=== PATIENT | female | born 1985 | race Caucasian/White ===

== ENCOUNTER 2018-09-10 16:43 | Emergency (ER) | payer MEDICAID ==
[~2018-09-10] VITALS: Wt 73.7 kg
[~2018-09-10 16:43] MED LIST: FERR27TA PO; FLUT9.9S NASAL; IBUP-1561 PO; LORA1TAB54 PO; PREN-46 PO
[2018-09-10] MEDS ORDERED: KETOROLAC 30 MG INJ IV STA (18:45)
[2018-09-10] MEDS ORDERED: METOCLOPRAMIDE 10 MG INJ IV ONE (19:00)
[2018-09-10] MEDS ORDERED: SOD CHLORIDE 0.9% 1,000 ML IV ONE (19:00)
[2018-09-10] MEDS ORDERED: DIPHENHYDRAMINE 50 MG INJ IV ONE (19:00)
[2018-09-10] MEDS ORDERED: morphine 2 MG INJ IV STA (19:54)
[2018-09-10] MEDS ORDERED: HYDROCODONE/APAP (5/325) TAB PO ONE (20:00)
[2018-09-10] MEDS ORDERED: MECLIZINE 12.5 MG TAB PO ONE (20:00)
[2018-09-10] MEDS ORDERED: BUTA1CAP38 PO (20:41)
[2018-09-10] MEDS ORDERED: BEN25 PO (20:41)
[2018-09-10] MEDS ORDERED: METO10TA92 PO (20:41)
[2018-09-10 20:45] VITALS: BP 104/60; PULSE 62; RESP 19
[2018-09-10] MEDS ORDERED: MECL12.574 PO (20:46)
--- NOTE | 2018-09-11 01:42 | ERD ---
ER Documentation Chief Complaint Chief Complaint bib self, cc: sanchez x 2 weeks, numbnss since yesterday left side HPI 33 year-old [female] coming in today with Chief Complaint: Headache History of Present Illness: female coming in today with complaint of headache for 2 weeks. Associated symptoms include dizziness, left-sided numbness for the past 2 days. Patient reports never has had migraine like the present headache that she currently has. Patient reports taking sumatriptan 25 mg daily for 7 days, no relief of headache. Review of systems: All systems were reviewed and are negative except for what is indicated in the history of present illness. Past Medical History: Migraine Social History: [Patient denies elicit drug use]; positive tobacco, alcohol, Medications: [Reviewed as documented Nursing Notes] Allergies: [NKDA] Social Concerns: Denies ROS All systems reviewed and are negative except as per history of present illness. Medications Home Meds Active Scripts Meclizine Hcl* (Antivert*) 12.5 Mg Tab, 12.5 MG PO Q6H PRN for DIZZINESS, #20 TAB Prov:ARNOLD ALEXANDER V DATA MINING ANALYST 09/10/18 Diphenhydramine Hcl* (Benadryl*) 25 Mg Cap, 25 MG PO Q6 for TAKE WITH REGLAN, #30 CAP Prov:ARNOLD ALEXANDER V DATA MINING ANALYST 09/10/18 Metoclopramide* (Reglan*) 10 Mg Tablet, 10 MG PO Q6 PRN for NAUSEA AND/OR VOMITING, #10 TAB Prov:ARNOLD ALEXANDER V DATA MINING ANALYST 09/10/18 Wwqyfxlgzw-Daxkwistbfslu-Dsoohlte* (Fioricet*) 50-300-40 Mg Capsule, 1 CAP PO Q4H PRN for HEADACHE, #10 CAP Prov:ARNOLD ALEXANDER V DATA MINING ANALYST 09/10/18 Ibuprofen* (Motrin*) 400 Mg Tab, 400 MG PO Q6H PRN for PAIN AND OR ELEVATED T EMP, #30 TAB Prov:MILTON PEOPLES PA-C 08/19/15 Loratadine/Pseudoephedrine* (Claritin-D* 12 Hr) 5-120 Mg Tab.er.12h, 1 TAB PO Q12, #20 TAB.SA Prov:MILTON PEOPLES PA-C 08/19/15 Fluticasone Propionate (Flonase Allergy Relief) 9.9 Ml Zoe.susp, 1 SPRAY NASAL BID, #1 BOTTLE TO EACH NOSTRIL Prov:MILTON PEOPLES PA-C 08/19/15 Reported Medications Ferrous Sulfate (Iron) 1 Tab Tablet, 1 TAB PO DAILY 07/13/13 Vit #108/Iron/Fa ( ONE TABLET) 1 Each Tablet, 1 EACH PO DAILY 06/01/13 Allergies Allergies: Coded Allergies: No Known Allergy (Unverified , 06/01/13) PMhx/Soc Hx Miscellaneous Medical Probl: Yes (MIGRAINE) Hx Alcohol Use: No Hx Substance Use: No Hx Tobacco Use: No FmHx Family History: diabetes; No coronary disease Physical Exam Vitals Vital Signs Date Temp Pulse Resp B/P (MAP) Pulse Ox O2 O2 Flow FiO2 Time Delivery Rate 09/10/18 97.0 62 19 104/60 97 Room Air 20:45 (75) 09/10/18 73 121/66 19:53 (84) 70 122/72 (89) 67 136/76 (96) 09/10/18 98.3 78 19 156/78 100 16:51 (104) Physical Exam Const: No acute distress Head: Atraumatic Eyes: Normal Conjunctiva ENT: Normal External Ears, Nose and Mouth. Neck: Full range of motion. No meningismus. Resp: Clear to auscultation bilaterally Cardio: Regular rate and rhythm, no murmurs Abd: Soft, non tender, non distended. Normal bowel sounds Skin: No petechiae or rashes Back: No midline or flank tenderness Ext: No cyanosis, or edema Neur: Awake and alert, patient speaking in clear sentences, decreased sensation to left side of face and left upper extremity; all other cranial nerves intact Psych: Normal Mood and Affect Results 24 hrs Laboratory Tests Test 09/10/18 17:48 POC Beta HCG, Qualitative NEGATIVE Current Medications Medications Dose Sig/Anthony Start Time Status Last (Trade) Ordered Route PRN Stop Time Admin Dose Reason Admin Sodium 1,000 ml @ Q1H ONCE 09/10/18 DC 09/10/18 Chloride 1,000 mls/hr IV 19:00 19:02 09/10/18 19:59 10 mg ONCE ONCE 09/10/18 DC 09/10/18 Metoclopramid IV 19:00 19:02 e HCl 09/10/18 19:01 (Reglan) 25 mg ONCE ONCE 09/10/18 DC 09/10/18 Diphenhydrami IV 19:00 19:02 ne HCl 09/10/18 19:01 (Benadryl) Ketorolac 30 mg ONCE STAT 09/10/18 DC 09/10/18 Tromethamine IV 18:45 19:02 (Toradol) 09/10/18 18:47 Meclizine 25 mg ONCE ONCE 09/10/18 DC 09/10/18 HCl PO 20:00 19:54 (Antivert) 09/10/18 20:01 1 tab ONCE ONCE 09/10/18 DC Acetaminophen PO 20:00 / 09/10/18 20:01 Hydrocodone Bitart (Lewis (5/325)) Morphine 2 mg ONCE STAT 09/10/18 DC Sulfate IV 19:54 (morphine) 09/10/18 19:56 Procedures/MDM Patient with complaint of headache ED course includes a thorough examination and history. Will order CT due to neuro deficit of decreased sensation. Patient reassessment: Inform patient CT negative, will order pain medications and migraine cocktail including Reglan, Benadryl, Toradol, IV NS. Patient reassessment at 1944: Patient reported pain decreased, 5 of 10, dizziness still present; will order meclizine and do orthostatic vital signs. Patient reassessment at 2039: Orthostatic vital signs normal. Patient reporting dizzy no longer present. Pain decreased. Inform patient of disposition, education given, family at bedside. Otherwise healthy patient presenting with constellation of symptoms likely representing migraine as characterized by history, physical exam findings [radiologic/lab findings]. No respiratory distress, otherwise relatively well appearing and nontoxic. Patient educated on diagnoses, prescriptions for Fioricet, Reglan, Benadryl, follow-up care, return precautions. Strict return precautions given for worsening condition; questions answered discharge. Disposition for discharge with followup in 2-3 days with PCP/clinic. Departure Diagnosis: Primary Impression: Migraine Migraine type: unspecified Status migrainosus presence: without status migrainosus Intractability: not intractable Qualified Codes: G43.909 - Migraine, unspecified, not intractable, without status migrainosus Condition: Stable Patient Instructions: Migraines and Cluster Headaches, Migraine Headache: Stages and Treatment Referrals: [facility] Usted se sanchez hecho un examen mdico de control que le indica que no est en luca condicin que requiera tratamiento urgente en el Departamento de Emergencia. Un estudio ms profundo y el tratamiento de flowers condicin pueden esperar sin ningn riesgo hasta que usted sea atendida/o en el consultorio de flowers mdico o luca clnica. Es responsabilidad suya arreglar luca alvaro para el seguimiento del yvonne. MANEJO DE CONDICIONES NO URGENTES EN EL FUTURO 1) Si usted tiene un mdico de atencin primaria: Usted debera llamar a flowers mdico de atencin primaria antes de venir al departamento de emergencia. Despus de las horas de consultorio, flowers doctor o flowers asociado/a est disponible por telfono. El mdico o enfermero de anna en el servicio telefnico puede asesorarle por chanel medio para atender el problema, o yvonne contrario se puede programar luca alvaro. 2) Si usted no tiene un mdico de atencin primaria: Llame al mdico o clnica de referencia que aparece abajo azul las horas de consultorio para hacer luca alvaro para que le vean. CLINICAS: [facility] [phone] [facility] [phone] [facility] [phone] [address] [facility] [address] [facility] [phone] [place] [id number] [phone] [facility]. [phone] [address] [facility]. [facility] () Usted se sanchez hecho un examen mdico de control que le indica que no est en luca condicin que requiera tratamiento urgente en el Departamento de Emergencia. Un estudio ms profundo y el tratamiento de flowers condicin pueden esperar sin ningn riesgo hasta que usted sea atendida/o en el consultorio de flowers mdico o luca clnica. Es responsabilidad suya arreglar luca alvaro para el seguimiento del yvonne. MANEJO DE CONDICIONES NO URGENTES EN EL FUTURO 1) Si usted tiene un mdico de atencin primaria: Usted debera llamar a flowers mdico de atencin primaria antes de venir al departamento de emergencia. Despus de las horas de consultorio, flowers doctor o flowers asociado/a est disponible por telfono. El mdico o enfermero de anna en el servicio telefnico puede asesorarle por chanel medio para atender el problema, o yvonne contrario se puede programar luca alvaro. 2) Si usted no tiene un mdico de atencin primaria: Llame al mdico o condado institucions de referencia que aparece abajo azul las horas de consultorio para hacer luca alvaro para que le vean. SI USTED NO PUEDE PAGAR PARA SOBEIDA UN MEDICO puede ir a: [facility] [address] [place] [address] [facility] [address] [place] [address] [facility] [address] [place] [address] [facility] [address] [place] [address] ARNOLD ALEXANDER NP Sep 11, 2018 01:42
== END 2018-09-10 20:50 | disposition home or self-care (01) ==
LOC: FTE 16:43
DX: G43.909 Migraine, unspecified, not intractable, without status migrainosus (principal)
CPT/HCPCS: 70450; 81025; J1200; J1885; J2765; J7030; Z7610; 96361; 96374; 96375